=== PATIENT | male | born 1965 | race Caucasian/White ===

== ENCOUNTER 2019-07-25 12:27 | Day surgery (SDC) | payer OTHER, SELFPAY ==
[2019-07-24 14:09] VITALS: BMI 38.5
[2019-07-25] MEDS: sodium chloride 0.9% 1,000 ML 30 ML IV (12:53)
[2019-07-25 13:01] VITALS: BP 135/98; PULSE 72; RESP 18; TEMP 36.1; O2SAT 97
--- NOTE | 2019-07-25 13:17 | P.ANES_ITS ---
Pre-Anesthetic Assessment Pre-Anesthetic Assessment: Height/Weight: Height 1.88 m Weight 136.078 kg Temp Pulse Resp BP Pulse Ox 97.0 F L 72 18 135/98 97 07/25/19 13:01 07/25/19 13:01 07/25/19 13:01 07/25/19 13:01 07/25/19 13:01 Preop Diagnosis: Anterior neck mass Proposed Procedure: Operation Date: 07/25/19 13:55 Proposed Procedures p Excision Mass/Lesion/Cyst Upper Extremit neck mass 54942 T81.89XA(Not Applicable) - Juan Luque MD Was Beta Remington taken within 24 hours: N/A Last intake: Intake Last Liquid Date 07/25/19 Last Liquid Time 08:00 Last Solid Date 07/24/19 Last Solid Time 18:00 Last Intake: 23:59 Social: Social History: No alcohol and No tobacco Exam: Pre-Anes Outpt Exam: alert, oriented x 3, clear to auscultation bilaterally and regular rate & rhythm Airway: Submandibular: WNL Cervical ROM: WNL MP: 2 Additional comments: missing front upper Pulmonary: Pulmonary: Sleep apnea Comments: cpap at night CV/HEM: CV/HEM: HTN : : None reported Hepatic: Hepatic: None reported GI: GI: GERD Comments: occ food related Metabolic: Metabolic: Morbid obesity Musc/skel: Musc/skel: Lower Back Pain and OA/DJD Neuropsych: Neuropsych: None reported Anesthetic Plan: ASA status: III Anesthesia: Anesthesia Evaluation and MAC Risk of > 500 ml blood loss (7ml/kg in children): No Meds/Allergies Current Medications: Current Medications Generic Name Dose Route Start Last Admin Trade Name Freq PRN Reason Stop Dose Admin Sodium Chloride 1,000 mls @ 30 ml s/hr 07/25/19 09:30 07/25/19 12:53 Sodium Chloride 0.9% IV 07/26/19 09:29 30 mls/hr .Q24H MARIE Administration PFSH Anesthesia PFSH: Social History Smoking and tobacco status: former smoker Quit status (tobacco): has quit using tobacco Second hand smoke exposure: No Alcohol intake: never Adopted: No Caregiver/support person: Yes Lives independently: Yes Household members: friend(s) Housing: House Marital status: Highest education level completed: High School Graduate service: No Current occupational status: employed Current occupational exposures/hazards: No Pets and animals: No History of recent travel: No Leisure activites: hunting and fishing Sexually active: Yes Current gender identity: Female Bobbi/Nondenominational: Druze Special bobbi needs: No Agree to transfusion: No Financial difficulty paying for basics: Decline to Answer Data Anesthesia Cardiac Studies: No Data to Display
--- NOTE | 2019-07-25 13:30 | PM.HPUD ---
H&P update H&P Update: DATE OF SURGERY/PROCEDURE: 07/25/19 DATE H&P PERFORMED: 07/19/19 H&P UPDATE INFORMATION: H&P completed within last 30 days and No changes to prior documentation PREOP DIAGNOSIS: Anterior neck sinus PLANNED PROCEDURE: Operation Date: 07/25/19 13:55 Proposed Procedures p Excision Mass/Lesion/Cyst Upper Extremit neck mass 36414 T81.89XA(Not Applicable) - Juan Luque MD Full H&P Medications/Allergies: Current Medications: Current Medications Generic Name Dose Route Start Last Admin Trade Name Freq PRN Reason Stop Dose Admin Sodium Chloride 1,000 mls @ 30 ml s/hr 07/25/19 09:30 07/25/19 12:53 Sodium Chloride 0.9% IV 07/26/19 09:29 30 mls/hr .Q24H MARIE Administration Perinent History: Family History: Family History (Updated 07/17/19 @ 13:20 by Cherie Albert RN) Brother Cancer Family/Other Diabetes Denies family history of Anesthesia complication Bleeding disorder Social History: Social History Smoking and tobacco status: former smoker Quit status (tobacco): has quit using tobacco Second hand smoke exposure: No Alcohol intake: never Adopted: No Caregiver/support person: Yes Lives independently: Yes Household members: friend(s) Housing: House Marital status: Highest education level completed: High School Graduate service: No Current occupational status: employed Current occupational exposures/hazards: No Pets and animals: No History of recent travel: No Leisure activites: hunting and fishing Sexually active: Yes Current gender identity: Female Bobbi/Jewish: Religion Special bobbi needs: No Agree to transfusion: No Financial difficulty paying for basics: Decline to Answer
[2019-07-25] MEDS: lidocaine 2% INJ 20 mL INJECTION (14:04)
--- NOTE | 2019-07-25 14:10 | PM.OP ---
Operative Report Date of procedure: 07/26/19 Pre-op Diagnosis: Anterior neck mass Post-op Diagnosis: Anterior neck mass Post-op Findings: Anterior neck mass likely sebaceous cyst Procedure Done: Excision of anterior neck mass Specimens removed/disposition: Anterior neck mass short suture marking superior Surgeon: Juan Luque Merchandise Shopper: radiocommunications technician Mark Circulating nurse Destinee Anesthesia: MAC and Local Estimated blood loss (mL): 5 Complications: No immediate complications Condition: stable Disposition: same day Brief History: This is a pleasant 53 years old gentleman well-known to me, the previous excision of sebaceous cyst of the neck, few months ago and then recently the patient developed a nodule and he re-presented to my office for surgical evaluation. After history taking physical examination and reviewing the chart, I counseled the patient for excision of that residual mass in the OR. Patient agreed to proceed Informed consent per chart Procedure: After identifying the patient holding area, patient was then transferred to the operative suite, was placed in supine position, IV propofol was given by the anesthesia provider, prophylactic IV antibiotics were given per protocol, both arms were tucked,prep and drape of the anterior neck lesion was done under the usual sterile technique. Time-out was done verifying the patient's name/date of /planned procedure and destination after the procedure, all were in agreement. After palpation of the lower anterior neck mass, I did an elliptical skin incision on top of the mass, and corresponding to the skin crease increase, I was able to dissect using a scissors and a good margin of normal subcutaneous tissues surrounding the mass, clinically consistent with sebaceous cyst Pre-excision of the mass measurement Anterior neck sebaceous cyst 1 x 1.5 cm Post Excision measuring the same, short suture parson superior The specimen was then passed to the circulating nurse. Thorough irrigation of the cavity was done and hemostasis, followed by deep dermal closure by 3-0 Vicryl, then 4-0 Monocryl for skin closure Lidocaine 2% was injected at the site of the incision that prior to the injection aspiration was done to make sure no injection is going into any vessel, followed by Dermabond Patient tolerated the procedure well, count of instruments, needles and sponges were completed at the end of the procedure. And then patient was transferred to the recovery area in stable condition. I Was present for the whole entire procedure
[2019-07-25 14:22] VITALS: BP 128/69; PULSE 87; RESP 18; TEMP 36.9; O2SAT 96
[2019-07-25 14:46] VITALS: BP 122/82; PULSE 69; RESP 18; O2SAT 99
== END 2019-07-25 15:03 | disposition home or self-care (01) ==
PROVIDERS: Family Provider Emergency Medicine Emergency Medical Services; PCP Emergency Medicine Emergency Medical Services; Visit Provider Surgery
PROC: (CPT 11422; principal; 2019-07-25 13:45)
DX: L72.0 Epidermal cyst (principal); Z83.3 Family history of diabetes mellitus; Z87.891 Personal history of nicotine dependence; Z79.1 Long term (current) use of non-steroidal anti-inflammatories (NSAID); G47.30 Sleep apnea, unspecified; I10 Essential (primary) hypertension; M19.90 Unspecified osteoarthritis, unspecified site; E66.01 Morbid (severe) obesity due to excess calories; Z68.38 Body mass index [BMI] 38.0-38.9, adult
CPT/HCPCS: 11422; 12041; 12345; 88309; 96365; J0690; J2001; J2704; J3010; J7030

== ENCOUNTER 2019-08-22 12:35 | Outpatient (CLI) | payer OTHER, SELFPAY ==
--- NOTE | 2019-08-22 13:00 | MR_ITS ---
WS: [id number] MRI RIGHT KNEE HISTORY: pain COMPARISON: None available. Anterior cruciate ligament: Diffuse abnormal signal throughout the ACL. No discernible normal ACL fib ers in the normal orientation. Femoral condyles are slightly posteriorly positioned with respect to t he tibial plateau. Posterior cruciate ligament: Increased signal in the posterior cruciate ligament. Suspect at least a partial tear in the mid PCL. Medial collateral ligament: Intact. Posterior lateral corner structures: Intact. Medial menisci: Abnormal signal in the posterior horn. Complex tear throughout the posterior horn gre atest involving the free edge and the inferior surface. There is marked fraying along both surfaces. Lateral meniscus: Suspect radial tear in the mid body but this abnormal signal is only seen on one se quence. There is additional fraying and intrasubstance degeneration in the posterior horn towards the free edge. Extensor mechanism: Distal quadriceps tendon and patellar tendons are intact. Fluid and soft tissue: There is a moderate amount of fluid in the super patellar bursa and also surro unding the femoral condyles. Moderate-sized Knowles's cyst Osseous and articular structures: Patellofemoral compartment: Normal. Medial compartment: Mild to moderate narrowing medial compartment. There is moderate loss of cartilag e with multiple cartilage defects in the ending of the cartilage. Small osteophytes from the tibial p lateau and femoral condyle along with minimal subchondral cystic edema. Lateral compartment: Mild narrowing of the lateral compartment with thinning and fissuring of the car tilage. Small osteochondral defect along the lateral tibial plateau. There is artifact in the soft tissues adjacent to the medial femoral condyle. No history of a prior s urgery. This may be metallic artifact from prior surgical intervention. MR/MR knee RT wo con* [id number] IMPRESSION: 1. Diffuse increased T2 signal throughout the ACL with an abnormal orientation consistent with complete tear. 2. Abnormal signal throughout the large portion of the PCL with partial tear s uspected at the mid body. 3. Complex tear posterior horn medial meniscus. 4. Intrasubstance degeneration posterior horn lateral meniscus with possible r adial tear in the mid body of the lateral meniscus. 5. Moderate-sized joint effusion. 6. Mild to moderate medial and mild lateral compartment osteoarthritis with de generative changes involving the cartilage. 7. Knowles's cyst.
== END 2019-08-22 12:36 | disposition home or self-care (01) ==
LOC: RADSHAW 12:36
PROVIDERS: Family Provider Emergency Medicine Emergency Medical Services; PCP Emergency Medicine Emergency Medical Services; Visit Provider Orthopaedic Surgery
DX: S86.911A Strain of unspecified muscle(s) and tendon(s) at lower leg level, right leg, initial encounter (principal); X58.XXXA Exposure to other specified factors, initial encounter; M25.461 Effusion, right knee; M71.21 Synovial cyst of popliteal space [Baker], right knee; M17.11 Unilateral primary osteoarthritis, right knee
CPT/HCPCS: 73721

== ENCOUNTER → 2021-01-29 09:15 | Outpatient (BNVA) | payer OTHER, SELFPAY | PROVIDERS: Family Provider Emergency Medicine Emergency Medical Services; PCP Emergency Medicine Emergency Medical Services; Visit Provider Nurse Practitioner Family | DX: Z20.822 Contact with and (suspected) exposure to COVID-19 (principal) | CPT/HCPCS: 87635 ==